=== PATIENT | male | born 2000 | race Caucasian/White ===

== ENCOUNTER 2020-12-14 14:00 | Emergency (ER) | payer OTHER ==
[~2020-12-14] VITALS: Ht 182.9 cm; Wt 70.0 kg
--- NOTE | 2020-12-14 14:03 | NUR ---
Pt brought to room by EMS [place] with correctional officers (CO's) x2 and moved to ED [place]. Pt A/O x4 with face pain s/p GLF due to syncope. 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 MD at bedside for exam at this time as well, looked at EMS 12 lead, and states not necessary to change pt in to gown at this time.
--- NOTE | 2020-12-14 14:10 | NUR ---
nuclear technologist completing 12 lead EKG.
--- NOTE | 2020-12-14 14:55 | NUR ---
manager technical support just complete lab draw, IV bolus of NS 1 liter running wide open and without issue with IV site benign, and PCXR being taken now.
[2020-12-14] MEDS ORDERED: SODIUM CHLORIDE FLUSH 10ML SYR IVF ONE (15:00)
[2020-12-14] MEDS ORDERED: SODIUM CHLORIDE 0.9% 1,000ML IVBOLUS ONE (15:00)
[2020-12-14 15:10] LABS: ALANINE AMINOTRANSFERASE 23 U/L (12-78); ANION GAP 4 mmol/L (5-15); CALCIUM 8.2 mg/dL (8.5-10.1); CHLORIDE 107 mmol/L (98-107); CREATININE 0.97 mg/dL (0.7-1.3)
[2020-12-14 15:11] LABS: BASOPHILS % (AUTO) 1 % (0-1); EOSINOPHILS % (AUTO) 0 % (1-7); LYMPHOCYTES % (AUTO) 21 % (22-44); MEAN CORPUSCULAR HEMOGLOBIN 31.1 pg (27.5-34.5); MEAN CORPUSCULAR HGB CONC 33.7 g/dL (33.2-36.2); MEAN PLATELET VOLUME 8.3 fL (7.4-10.4); MONOCYTES % (AUTO) 5 % (2-9); NEUTROPHILS % (AUTO) 73 % (42-75); PLATELET COUNT 266 x10^3/uL (130-400); RED BLOOD COUNT 4.93 x10^6/uL (4.38-5.82); RED CELL DISTRIBUTION WIDTH 13.5 % (9.4-14.8)
[2020-12-14 15:12] LABS: MD NO
[2020-12-14 15:14] LABS: ALKALINE PHOSPHATASE 49 U/L (45-117); BILIRUBIN,TOTAL 0.3 mg/dL (0.2-1.0); TOTAL PROTEIN 5.8 g/dL (6.4-8.2); TROPONIN I < 0.015 ng/mL (0.000-0.045)
--- NOTE | 2020-12-14 15:34 | NUR ---
Report given to ESTHELA Acosta for meal break.
--- NOTE | 2020-12-14 15:58 | NUR ---
BREAK RN- IVF COMPLETE. DR. LUTZ AT BEDSIDE. VS UPDATED AND WNL. PT TO HAVE A CT OF THE FACE TO CHECK FOR NASAL FRACTURE THEN TO BE DISCARGED.
--- NOTE | 2020-12-14 16:08 | NUR ---
Pt being taken to CT now via gurney with COx2 in tow. Report received from Dave, ESTHELA and care reassumed. Noted that IV bolus is completed and stop time was documented by Dave.
--- NOTE | 2020-12-14 16:15 | NUR ---
Pt returned from radiology without acute change while off unit.
[2020-12-14 17:26] VITALS: BP 105/65
== END 2020-12-14 17:29 | disposition home or self-care (01) ==
LOC: ED 16:15
DX: S02.2XXA Fracture of nasal bones, initial encounter for closed fracture (principal); R55 Syncope and collapse; R42 Dizziness and giddiness; R53.1 Weakness; X58.XXXA Exposure to other specified factors, initial encounter; Y93.89 Activity, other specified; Y92.89 Other specified places as the place of occurrence of the external cause; Y99.8 Other external cause status
CPT/HCPCS: 36415; 70486; 71045; 80053; 84484; 85025; 93005; 96360; 99285; J7030